=== PATIENT | male | born 1975 | race Caucasian/White ===

== ENCOUNTER 2019-04-22 10:29 | Emergency (ER) | payer BC ==
--- NOTE | 2019-04-22 11:29 | EDM.PDOC ---
ED HPI GENERAL MEDICAL PROBLEM - General Chief Complaint: Headache Stated Complaint: NECK PAIN AND HEADACHE Time Seen by Provider: 04/22/19 10:46 Source of Information: Reports: Patient History Limitations: Reports: No Limitations - History of Present Illness INITIAL COMMENTS - FREE TEXT/NARRATIVE: HISTORY AND PHYSICAL: History of present illness: Patient is a 43-year-old male who presents to the emergency room with complaints of weekly migraines. He states over the past 1 month he has noticed he has been getting migraine headaches which he describes as a tight sensation to his posterior neck that wraps around his scalp with a sharp throbbing pain behind his eyes. He has associated light and noise sensitivity and intermittent nausea. Patient states prior to this past month he has never had migraines like this. He also mentions concern that this morning he thought he had some soft tissue swelling to his posterior neck. He believes there could be some problems with the hardware in his cervical neck fusion. Concerned that this could be the cause of his headaches. He did take 8 ibuprofen prior to arrival. Currently has no headache or associated symptoms. Patient denies any fever, chills, skin changes, change in vision, syncope or near syncope. Denies any chest pain, back pain, shortness of breath or cough. Denies any abdominal pain, vomiting, diarrhea, constipation or dysuria. Has not noted any blood in urine or stool. Patient has been eating and drinking appropriately. Review of systems: As per history of present illness and below otherwise all systems reviewed and negative. Past medical history: As per history of present illness and as reviewed below otherwise noncontributory. Surgical history: As per history of present illness and as reviewed below otherwise noncontributory. Social history: See social history for further information Family history: As per history of present illness and as reviewed below otherwise noncontributory. Physical exam: General: Well developed and well nourished 43-year-old male. Alert and oriented. Nontoxic-appearing and in no acute distress. HEENT: Atraumatic, normocephalic, pupils equal and reactive bilaterally, negative for conjunctival pallor or scleral icterus, mucous membranes moist, TMs normal bilaterally, throat clear, neck supple, nontender, trachea midline. No drooling or trismus noted. No meningeal signs. No hot potato voice noted. Lungs: Clear to auscultation, breath sounds equal bilaterally, chest nontender. Heart: S1S2, regular rate and rhythm without overt murmur Abdomen: Soft, nondistended, nontender. Negative for masses or hepatosplenomegaly. Negative for costovertebral tenderness. Skin: Intact, warm, dry. No lesions or rashes noted. Extremities: Atraumatic, moves all extremities per self without difficulty or deficits, negative for cords or calf pain. Neurovascular unremarkable. Neuro: Awake, alert, oriented. Cranial nerves II through XII unremarkable. Cerebellum unremarkable. Motor and sensory unremarkable throughout. Exam nonfocal. Notes: No acute findings. There is an old fracture of the left occipital bone. CT of the cervical spine shows an intact fusion of C5-6 and C6-C7. Minimal degenerative changes. Information was shared with the patient. He has been migraine free while here. We did talk about using some abortive medications for home and having close follow-up with his primary care provider. Supportive care measures were reviewed and discussed. Voices understanding and is agreeable to plan of care. Denies any further questions or concerns at this time. Diagnostics: Head and C-spine CT Therapeutics: None Prescription: Fioricet Impression: Migraine headache Plan: 1. You can take the prescribed migraine medication 1 tab every 4 hours as needed at the onset of symptoms. If you are having to use this medication frequently it would be important for you to follow-up with primary care to see if a different medication would be more beneficial. You can continue to take ibuprofen as directed. Do not take any additional Tylenol or acetaminophen while taking this medication, as the tablet already has acetaminophen in it. 2. Follow-up with your primary care provider as we discussed. 3. Return to the ED as needed and as discussed. Definitive disposition and diagnosis as appropriate pending reevaluation and review of above. - Related Data Allergies Allergy/AdvReac Type Severity Reaction Status Date / Time No Known Allergies Allergy Verified 04/22/19 10:53 Home Meds: Home Meds Butalb/Acetaminophen/Caffeine [Trpstc-[id number] 50-325-40] 1 each PO Q4HR PRN #10 capsule 04/22/19 [Rx] Past Medical History HEENT History: Reports: None Cardiovascular History: Reports: None Respiratory History: Reports: None Gastrointestinal History: Reports: None Genitourinary History: Reports: None Musculoskeletal History: Reports: None Neurological History: Reports: None Psychiatric History: Reports: None Endocrine/Metabolic History: Reports: None Hematologic History: Reports: None Immunologic History: Reports: None Oncologic (Cancer) History: Reports: None Dermatologic History: Reports: None - Past Surgical History Head Surgeries/Procedures: Reports: None HEENT Surgical History: Reports: None Cardiovascular Surgical History: Reports: None Respiratory Surgical History: Reports: None GI Surgical History: Reports: None Male Surgical History: Reports: None Endocrine Surgical History: Reports: None Neurological Surgical History: Reports: None Musculoskeletal Surgical History: Reports: Other (See Below) Other Musculoskeletal Surgeries/Procedures:: neck fusion Oncologic Surgical History: Reports: None Dermatological Surgical History: Reports: None Social & Family History - Family History Family Medical History: Noncontributory - Tobacco Use Smoking Status *Q: Never Smoker Second Hand Smoke Exposure: No - Caffeine Use Caffeine Use: Reports: None - Recreational Drug Use Recreational Drug Use: No ED ROS GENERAL - Review of Systems Review Of Systems: Comprehensive ROS is negative, except as noted in HPI. - Physical Exam Exam: See Below (See dictation) Course - Vital Signs Last Recorded V/S: Last Vital Signs Temp 98.1 F 04/22/19 11:44 Pulse 81 04/22/19 11:44 Resp 16 04/22/19 11:44 BP 110/76 04/22/19 11:44 Pulse Ox 98 04/22/19 11:44 Departure - Departure Time of Disposition: 11:37 Disposition: Home, Self-Care 01 Clinical Impression: Migraine Qualifiers: Migraine type: unspecified Status migrainosus presence: without status migrainosus Intractability: not intractable Qualified Code(s): G43.909 - Migraine, unspecified, not intractable, without status migrainosus - Discharge Information Prescriptions: Butalb/Acetaminophen/Caffeine [Pfcvch-Cfgbzqnm-Hpor 50-325-40] 1 each PO Q4HR PRN #10 capsule PRN Reason: Headache/Pain Instructions: Migraine Headache, [id number] Referrals: PCP,None [Primary Care Provider] - Forms: ED Department Discharge Additional Instructions: The following information is given to patients seen in the emergency department who are being discharged to home. This information is to outline your options for follow-up care. We provide all patients seen in our emergency department with a follow-up referral. The need for follow-up, as well as the timing and circumstances, are variable depending upon the specifics of your emergency department visit. If you don't have a primary care physician on staff, we will provide you with a referral. We always advise you to contact your personal physician following an emergency department visit to inform them of the circumstance of the visit and for follow-up with them and/or the need for any referrals to a consulting specialist. The emergency department will also refer you to a specialist when appropriate. This referral assures that you have the opportunity for follow-up care with a specialist. All of these measure are taken in an effort to provide you with optimal care, which includes your follow-up. Under all circumstances we always encourage you to contact your private physician who remains a resource for coordinating your care. When calling for follow-up care, please make the office aware that this follow-up is from your recent emergency room visit. If for any reason you are refused follow-up, please contact the [facility] Emergency Department at and asked to speak to the emergency department charge nurse. [facility] [address] [place] [id number] [place] [address] 1. You can take the prescribed migraine medication 1 tab every 4 hours as needed at the onset of symptoms. If you are having to use this medication frequently it would be important for you to follow-up with primary care to see if a different medication would be more beneficial. You can continue to take ibuprofen as directed. Do not take any additional Tylenol or acetaminophen while taking this medication, as the tablet already has acetaminophen in it. 2. Follow-up with your primary care provider as we discussed. 3. Return to the ED as needed and as discussed. Sepsis Event Note - Evaluation Sepsis Screening Result: No Definite Risk - Focused Exam Vital Signs: Vital Signs Temp Pulse Resp BP Pulse Ox 04/22/19 11:44 98.1 F 81 16 110/76 98 04/22/19 11:13 97.4 F 63 16 99/47 L 97 04/22/19 10:54 96.9 F 73 18 149/68 H 97 Date Exam was Performed: 04/22/19 Time Exam was Performed: 16:26
--- NOTE | 2019-04-22 11:33 | CT ---
Head CT Technique: Multiple axial sections through the brain were obtained. Intravenous contrast was not utilized. Comparison: No prior intracranial imaging is available. Findings: Ventricles along with basal cisterns and sulci over convexities are within normal limits for the patient's age. No abnormal parenchymal densities are seen. No evidence of intracranial hemorrhage. No midline shift or mass effect is seen. Bone window settings were reviewed. Previous fracture within the left occipital bone is seen. Margins of this are fairly smooth and this is most likely old. No acute calvarial abnormality is seen. Visualized paranasal sinuses and mastoid sinus that showed nothing acute. Impression: 1. Fracture within the left occipital bone. Margins of this are smooth and this is felt to be old. 2. No acute intracranial abnormality is appreciated. Diagnostic code #2 Study was dictated in [place] Standard Time
--- NOTE | 2019-04-22 11:33 | CT ---
CT cervical spine Technique: Multiple axial sections were obtained from above C1 inferiorly to the mid T3 level. Reconstructed sagittal and coronal images were reviewed. Comparison: No prior cervical spine imaging. Findings: Previous surgery is noted with intact fusion at C5-C6 and C6-C7. Anterior plate and screws are noted between C5 and C7. Well-corticated bony density is noted within the posterior soft tissues at the C6-C7 level which is old. Mild disc space narrowing is noted at C4-C5. No fracture is identified. No bony central or bony neural foraminal stenosis is noted. No abnormal subluxation is seen on the reconstructed sagittal images. Impression: 1. Intact fusion at C5-C6 and C6-C7 with anterior plate and screws. 2. Minimal degenerative change. Other finding as noted above which is old. 3. No acute fracture or abnormal subluxation is seen. Diagnostic code #2 Study was dictated in [place] [employer] Time
== END 2019-04-22 11:45 | disposition home or self-care (01) ==
LOC: MW.ED 10:29
DX: G43.909 Migraine, unspecified, not intractable, without status migrainosus (principal)
CPT/HCPCS: 70450; 70450-26; 72125; 72125-26; 99283; 99283-25